=== PATIENT | female | born 1960 | race Hispanic/Latino ===

== ENCOUNTER 2024-06-22 09:00 | Outpatient (RCR) | payer MEDICARE | END 2024-06-23 | LOC: PT 09:00 | PROVIDERS: ATTEND Specialist | DX: M70.62 Trochanteric bursitis, left hip (principal); R53.81 Other malaise ==

== ENCOUNTER 2024-07-13 08:39 | Outpatient (RCR) | payer MEDICARE | END 2024-07-24 | LOC: PT 08:39 | PROVIDERS: ATTEND Specialist | DX: M70.62 Trochanteric bursitis, left hip (principal); R53.81 Other malaise ==